=== PATIENT | female | born 1945 | race Two or more races ===

== ENCOUNTER 2017-11-25 09:12 | Day surgery (SDC) | payer MEDICARE, MEDICAID ==
[~2017-11-25] VITALS: Ht 162.6 cm; Wt 71.2 kg
[2017-11-25] VITALS (11 sets, daily range): BP systolic 141–166; BP diastolic 65–78
[~2017-11-25 09:12] MED LIST: VITAMIN C500 M1 PO; VITAMIN D3 PO
[2017-11-25] MEDS ORDERED: LR 1000ml 1,000 ML IVLG SCH ×2 (09:58→11:41)
[2017-11-25] MEDS ORDERED: Lidocaine 1% MPF 10mg/ml 5ml ONE (10:00)
[2017-11-25] MEDS ORDERED: LR 1000ml ONE (10:00)
[2017-11-25] MEDS ORDERED: Propofol 200mg/20ml IV ONE (10:00)
--- NOTE | 2017-11-25 10:11 | Short Stay Surgery H&P ---
History of Present Illness History of Present Illness Chief Complaint Abdominal pains/GERDS/familaial colon cancer/screening colon HPI Miguelina Vela is a 72 year old female who was admitted on for Abdominal Pain /constipation Patient History Allergies: Coded Allergies: INDOMETHACIN (Verified Allergy, Severe, LOCKJAW, 04/14/12) INDOMETHACIN SODIUM TRIHYDRATE (Verified Allergy, Severe, LOCKJAW, ) METOCLOPRAMIDE HCL (Verified Allergy, Severe, LOCKJAW, 04/14/12) PROCHLORPERAZINE EDISYLATE (Verified Allergy, Severe, LOCKJAW, 04/14/12) PROCHLORPERAZINE MALEATE (Verified Allergy, Severe, LOCKJAW, 04/14/12) PAST MEDICAL HISTORY: (1) Migraine (2) Hypertension Medication History Scheduled Ascorbic Acid* (Vitamin C*), 1,000 MG PO DAILY, (Reported) [Vitamin D3], 1 TAB PO Q DAY, (Reported) Review of Systems Cardiovascular: Reports: no symptoms Respiratory: Reports: no symptoms Skeletal: Reports: no symptoms Gastrointestinal: Reports: gastro esophageal reflux disease Genitourinary: Reports: no symptoms Neurologic: Reports: no symptoms Endocrine: Reports: no symptoms Hematologic: Reports: no symptoms Physical Exam Vital Signs Last Vital Signs Date Time Temp Pulse Resp B/P (MAP) Pulse Ox O2 Delivery O2 Flow Rate FiO2 11/25/17 10:01 Room Air 11/25/17 09:54 97.6 71 18 146/73 (97) 98 97.6 Skin: normal HENT: normal Heart: normal Lungs: normal Abdomen: abnormal Extremities: normal Genitourinary: normal Plan Plan of Care Upper and lower GI endoscopy Preop Interventions None. Summary of Findings See the reports Attestation Are the patient's medical conditions optimized for surgery? Attestation Response: yes Cristina Guzman MD Nov 25, 2017 10:11
--- NOTE | 2017-11-25 10:19 | Pre-Procedure Note/Attestation ---
Pre-Procedure Note/Attestation Complete Prior to Procedure Planned Procedure: left Procedure Narrative: Examination of the upper and the lower GI tract via endoscopy Indications for Procedure Pre-Operative Diagnosis: R/O Gastritis/Colon cancer of family/ Attestation I attest that I discussed the nature of the procedure; its benefits; risks and complications; and alternatives (and the risks and benefits of such alternatives ), prior to the procedure, with the patient (or the patient's legal digital media representative). I attest that, if there was a reasonable possibility of needing a blood transfusion, the patient (or the patient's legal digital media representative) was given the [place] [facility] [employer] [facility] standardized written summary, pursuant to the [place] Blood Safety Act ([place] Health and Safety Code # 1645, as amended). I attest that I re-evaluated the patient just prior to the surgery and that there has been no change in the patient's H&P, except as documented below: Cristina Guzman MD Nov 25, 2017 10:19
--- NOTE | 2017-11-25 11:24 | Endoscopy Procedure Note ---
Endoscopy Procedure Note General Indication for Procedure: History of GERDs/abdominal pains. Familaial colon CA and screening colon. Procedures Performed: EGD - Normal Upper GI endoscopy with incidental fundic type polyp (secondary to use of PPI) that was removed for pathology exam. Random biopsyfrom gastric body also obtained., colonoscopy - Very dificult procedure due to igh colon redundancy. Grade II-III internal hemorrhoids. 2 1/2 CM pedunculated polyp in ascending colon along with a 5mm penculated polyps removed by hot snare located over ascending colon. Specimen: yes Pt Tolerated Procedure Well: Yes Estimated Blood Loss: none Anesthesia Anesthesiologist: Dr. Montoya Anesthesia: moderate sedation Medications Medication Given: see anesthesia record Inserted Devices Implant(s) used?: No Quality Quality of Bowel Preparation: Good Did scope reach the cecum?: Yes Was there any complications?: No GI Core Measures 50 yrs or older w/o bx or poly: Yes 10yrs. F/U not recommended: Yes <3yrs. since last colonoscopy: No Med reason:<3 yrs.: System Reason:<3 yrs.: Last colonoscopy >= to 3yrs: Yes Cristina Guzman MD Nov 25, 2017 11:24
--- NOTE | 2017-11-25 11:25 | Discharge Instructions ---
Discharge Instructions Discharge Instructions Follow up with: Visit the docotor after 2 weeks in the office For Congestive Heart Failure Reminder Report to your physician any weight gain of 5 pounds or more in one week. Cristina Guzman MD Nov 25, 2017 11:25
[2017-11-25] MEDS ORDERED: DiphenhydrAMINE 50mg/ml Inj IVP PRN (11:45)
[2017-11-25] MEDS ORDERED: fentaNYL 100 mcg/2 mL IV PRN (11:45)
[2017-11-25] MEDS ORDERED: Atropine Inj 1mg/10ml Syr IV PRN (11:45)
[2017-11-25] MEDS ORDERED: Midazolam 2mg/2ml Inj IVP PRN (11:45)
[2017-11-25] MEDS ORDERED: Labetalol 5mg/ml 20ml vial IV PRN (11:45)
--- NOTE | 2017-11-25 11:45 | Anethesia Preoperative Eval ---
Anesthesia Pre-op PMH/ROS General Date of Evaluation: Nov 25, 2017 Time of Evaluation: 10:08 Anesthesiologist: meena ASA Score: ASA 3 Mallampati Score Class I : Soft palate, uvula, fauces, pillars visible Class II: Soft palate, uvula, fauces visible Class III: Soft palate, base of uvula visible Class IV: Only hard plate visible Mallampati Classification: Class II Surgeon: astrid Diagnosis: gerd/ colon screening Surgical Procedure: egd/colonoscopy Anesthesia History: none Family History: no anesthesia problems Allergies: Coded Allergies: INDOMETHACIN (Verified Allergy, Severe, LOCKJAW, 04/14/12) INDOMETHACIN SODIUM TRIHYDRATE (Verified Allergy, Severe, LOCKJAW, ) METOCLOPRAMIDE HCL (Verified Allergy, Severe, LOCKJAW, 04/14/12) PROCHLORPERAZINE EDISYLATE (Verified Allergy, Severe, LOCKJAW, 04/14/12) PROCHLORPERAZINE MALEATE (Verified Allergy, Severe, LOCKJAW, 04/14/12) Medications: see eMAR Past Medical History Cardiovascular: Reports: HTN Musculoskeletal/Integumentary: Reports: OA Anesthesia Pre-op Phys. Exam Physician Exam Last Vital Signs Date Time Temp Pulse Resp B/P (MAP) Pulse Ox O2 Delivery O2 Flow Rate FiO2 11/25/17 10:01 Room Air 11/25/17 09:54 97.6 71 18 146/73 (97) 98 97.6 Constitutional: NAD Neurologic: CN 2-12 intact Cardiovascular: RRR Respiratory: CTA Gastrointestinal: S/NT/ND Airway Exam Mallampati Score: Class II MO: limited Neck: supple TMD: 2fb ROM: limited Teeth: broken Anesthesia Pre-op A/P Risk Assessment & Plan Assessment: asa3 Plan: mac Status Change Before Surgery: No Pre-Antibiotics Drug: Haritha Marcos MD Nov 25, 2017 11:45
--- NOTE | 2017-11-25 11:47 | Immediate Post-Op Evaluation ---
Immediate Post-Op Evalulation Immediate Post-Op Evalulation Procedure: egd/colonoscopy/bx Date of Evaluation: Nov 25, 2017 Time of Evaluation: 11:39 IV Fluids: 450ml lr Blood Products: none Estimated Blood Loss: negligible Blood Pressure Systolic: 133 Blood Pressure Diastolic: 70 Pulse Rate: 65 Respiratory Rate: 18 O2 Sat by Pulse Oximetry: 100 Temperature (Fahrenheit): 97.2 Pain Score (1-10): 0 Nausea: No Vomiting: No Complications none Patient Status: awake, reacts, patent Hydration Status: adequate Drug: Haritha Marcos MD Nov 25, 2017 11:47
--- NOTE | 2017-11-25 11:48 | 48 Hour Post Anesthesia Eval ---
Post Anesthesia Evaluation Procedure: egd/colonoscopy/bx Date of Evaluation: Nov 25, 2017 Time of Evaluation: 11:47 Blood Pressure Systolic: 140 0: 70 Pulse Rate: 65 Respiratory Rate: 18 Temperature (Fahrenheit): 97.2 O2 Sat by Pulse Oximetry: 99 Airway: patent Nausea: No Vomiting: No Pain Intensity: 0 Hydration Status: adequate Cardiopulmonary Status: stable Mental Status/LOC: patient returned to baseline Post-Anesthesia Complications: none Follow-up care needed: N/A Haritha Tellez MD Nov 25, 2017 11:48
--- NOTE | 2017-12-01 09:01 | Operative Note - Dictated ---
DATE OF OPERATION: 11/25/2017 SURGEON: Cristina Guzman M.D. PROCEDURE: Esophagogastroduodenoscopy with biopsy. PREOPERATIVE DIAGNOSIS: History of chronic gastroesophageal reflux, rule out gastritis, peptic ulcer disease. POSTOPERATIVE DIAGNOSIS: Completely normal upper GI endoscopy with incidental finding of fundic type of a small 2 mm polypoid lesion over the fundus of the stomach, mostly secondary to side effects of PPIs, removed by cold biopsy. A random biopsy from the gastric body was also obtained. MEDICATION USED: Per Dr. Montoya, anesthesiologist. INSTRUMENT: GIF Olympus video upper gastrointestinal endoscope. DESCRIPTION OF PROCEDURE: The patient after arriving endoscopy unit, was told about risks and benefits of the procedure which she accepted signed informed consent. At this time, she was put in the left lateral decubitus position. After adequate IV sedation, the scope was gently passed through the cricopharyngeal area, was lodged into the upper esophagus and gradually advanced towards gastroesophageal junction. The entire length of esophagus looked normal. No evidence of varices, inflammatory process, ulceration, stricture, etc. was found. GE junction also looked normal. No evidence of Aguilera's mucosa or hiatal hernia. The scope at this time was advanced into the stomach. Gastric cavity was distended with insufflation of air. The areas of the fundus and the body and the antrum were examined in sanitation laborer fashion. An incidental finding of 2 to 3 mm soft polypoid lesion was found over the fundus of the stomach, which was thought to be secondary to use of PPIs. It looked benign and it was removed with cold biopsy forceps and sent to pathology lab. At this time, the gastric body was examined, which revealed normal mucosal coverage without any ulcers tumors, inflammatory process, ulceration, etc. One random biopsy from gastric body obtained and subsequently, the scope was passed through the pylorus. First and second portion of the duodenum were found to be also completely normal. At this time, the scope was pulled out and procedure was terminated. The patient tolerated the procedure well. Cristina Guzman M.D. DR: LUANNE JOB#: [id number] CC: TOBY
--- NOTE | 2017-12-01 09:01 | Operative Note - Dictated ---
DATE OF OPERATION: 11/25/2017 SURGEON: Cristina Guzman M.D. PROCEDURE: Total colonoscopy with multiple polypectomy. PREOPERATIVE DIAGNOSIS: History of familial colon cancer, screening colonoscopy. POSTOPERATIVE DIAGNOSES: 1. Grade 2/3 internal hemorrhoids. 2. Multiple right colon polypoid lesion, the biggest size is 2 x 2.5 cm pedunculated, mostly compatible with tubular adenoma, polyps removed with hot snare, otherwise normal study. MEDICATION USED: Per Dr. Montoya, anesthesiologist. INSTRUMENT: GIF Olympus video colonoscope. DESCRIPTION OF PROCEDURE: The patient after arriving the endoscopy unit, was told about risks and benefits of the procedure, which she accepted signed informed consent. At this time, she was put on the left lateral decubitus position and the scope was gradually passed into the rectal anal area. This revealed evidence of grade 2/3 internal hemorrhoids, which was not friable. The rest of the rectum was also looked normal. At this time, the scope was passed through highly redundant colon, which took significant amount of time to pass through with putting the patient in different positions and it made the colonoscopy very difficult. However, gradually the scope reached towards the splenic flexure. It was guided into transverse colon reaching towards the hepatic flexure and was advanced into the right colon. In this area incidentally, multiple small polypoid lesion, which looked benign and somewhat friable were seen; however, there was a rather large pedunculated polypoid lesions size of 2 x 2.5 centimeter; however, looked benign, possibly compatible with the tubulovillous adenoma, which was removed by multiple snare cautery at and finally all the specimen was sent to the pathology lab. The site of polypectomy did not reveal any bleeding. Finally, the scope reached to the base of the cecum and all these areas were also normal. The colon cleanup was adequate and at this time within 7 minute the scope was gradually pulled out and re-evaluation of the colon did not reveal any other abnormalities. The patient tolerated the procedure well and left the endoscopy room in a good condition. Cristina Guzman M.D. DR: LUANNE JOB#: [id number] CC:
== END 2017-11-25 13:35 | disposition home or self-care (01) ==
LOC: GAS 09:12
DX: Z12.11 Encounter for screening for malignant neoplasm of colon (principal); Z80.0 Family history of malignant neoplasm of digestive organs; D12.2 Benign neoplasm of ascending colon; K64.8 Other hemorrhoids; K21.9 Gastro-esophageal reflux disease without esophagitis; K29.50 Unspecified chronic gastritis without bleeding; K31.7 Polyp of stomach and duodenum; I10 Essential (primary) hypertension; M19.90 Unspecified osteoarthritis, unspecified site
CPT/HCPCS: 43239; 45385; J2704; J3010; J7120; 94003; 94150